=== PATIENT | female | born 1950 | race Caucasian/White ===

== ENCOUNTER 2018-09-04 06:21 | Inpatient (IN) ==
[2018-09-04 07:10] LABS: Basophils % 0.7 % (0.0-0.8); Eosinophils # 0.2 10*3/uL (0.0-0.87); Eosinophils % 2.8 % (0.00-10.9); Hematocrit 42.4 VOL% (35.7-47.0); Hemoglobin 14.2 GM/DL (12.0-16.0); Immature Granulocytes % 0.5 %; Immature Granulocytes Absolute 0.03 #; Lymphocytes # 1.2 10*3/uL (1.4-4.0); Lymphocytes % 18.7 % (21.3-54.2); Mean Corpuscular HGB Conc 33.5 GM/DL (32-36); Mean Corpuscular Hemoglobin 33 PG (27-34); Mean Corpuscular Volume 97.5 FL (87-102); Mean Platelet Volume 9.4 FL (9.6-12.0); Monocytes # 0.5 10*3/uL (0.11-0.8); Monocytes % 8.6 % (1.7-12.7); Neutrophils # 4.2 10*3/uL (1.4-7.4); Neutrophils % 68.7 % (38.7-73.9); Platelet Count 243 T/CUMM (130-400); Red Blood Count 4.35 MC/CUMM (3.8-5.5); Red Cell Distribution Width 12.7 % (9.3-17.3); White Blood Count 6.1 T/CUMM (4-12)
[2018-09-04 07:30] LABS: INR 0.9; PT Patient Result 9.3 SECS
[2018-09-04 07:57] LABS: Alanine Aminotransferase 44 U/L (13-56); Albumin 2.9 G/DL (3.4-5.0); Alkaline Phosphatase 48 U/L (45-117); Aspartate Amino Transferase 49 U/L (0-37); Bilirubin,Total < 0.39 MG/DL (0.2-1.0); Blood Urea Nitrogen 13 MG/DL (7-18); Calcium 7.5 MG/DL (8.5-10.1); Glucose 101 MG/DL (74-106); Potassium 3.3 MMOL/L (3.5-5.1); Sodium 143 MMOL/L (136-145); Total Protein 5.6 G/DL (6.4-8.3)
[2018-09-04] MEDS ORDERED: ENOXAPARIN 100 MG/ML SYRINGE SUBCUT STA (08:29)
[2018-09-04] MEDS ORDERED: NITROGLYCERIN 2% OINT 1 INCH/GM PACK TOP STA (08:29)
[2018-09-04] MEDS ORDERED: ASPIRIN 325 MG TABLET PO STA (08:29)
[2018-09-04] MEDS ORDERED: DOCUSATE SODIUM 100 MG CAPSULE PO PRN (09:07)
[2018-09-04] MEDS ORDERED: MAGNESIUM SULF RIDER 2 GM in PREMIX 1 EACH IV PRN (09:07)
[2018-09-04] MEDS ORDERED: ACETAMINOPHEN 325 MG TABLET PO PRN (09:07)
[2018-09-04] MEDS ORDERED: ZALEPLON 5 MG CAPSULE PO PRN (09:07)
[2018-09-04] MEDS ORDERED: MAGNESIUM SULF RIDER 4 GM in PREMIX 1 EACH IV PRN (09:07)
[2018-09-04] MEDS ORDERED: MORPHINE 4 MG/1 ML VIAL IV PRN (09:07)
[2018-09-04] MEDS ORDERED: TICAGRELOR 90 MG TABLET PO STA (09:11)
[2018-09-04] MEDS ORDERED: MAGNESIUM SULF RIDER 2 GM in PREMIX 1 EACH IV STA (09:11)
[2018-09-04] MEDS ORDERED: NITROGLYCERIN 2% OINT 1 INCH/GM PACK TOP PRN (09:15)
[2018-09-04] MEDS ORDERED: POTASSIUM CHLORIDE 20 MEQ TABLET PO STA (09:32)
[2018-09-04] MEDS: METOPROLOL TARTRATE 25 MG TABLET PO SCH ×2 (10:51→21:36)
[2018-09-04] MEDS ORDERED: NITROGLYCERIN DRIP 50 MG/250 ML BOTTLE IV PRN (14:12)
[2018-09-04] MEDS ORDERED: NITROGLYCERIN DRIP 50 MG/250 ML BOTTLE IV ONE (14:14)
[2018-09-04] MEDS ORDERED: ONDANSETRON 4 MG/2 ML VIAL ONE (15:01)
[2018-09-04] MEDS ORDERED: ONDANSETRON 4 MG/2 ML VIAL IV PRN (15:04)
[2018-09-04] MEDS ORDERED: amLODIPine 5 MG TABLET PO SCH (21:00)
[2018-09-04] MEDS: TICAGRELOR 90 MG TABLET PO SCH (21:36)
[2018-09-04] MEDS: ROSUVASTATIN 20 MG TABLET PO SCH (21:36)
[2018-09-04] MEDS: ENOXAPARIN 80 MG/0.8 ML SYRINGE SUBCUT SCH (21:37)
[2018-09-05 04:16] LABS: Basophils % 0.5 % (0.0-0.8); Eosinophils # 0.1 10*3/uL (0.0-0.87); Eosinophils % 1.8 % (0.00-10.9); Hematocrit 34.5 VOL% (35.7-47.0); Hemoglobin 11.3 GM/DL (12.0-16.0); Immature Granulocytes % 0.5 %; Immature Granulocytes Absolute 0.03 #; Lymphocytes % 15.8 % (21.3-54.2); Mean Corpuscular HGB Conc 32.8 GM/DL (32-36); Mean Corpuscular Hemoglobin 32 PG (27-34); Mean Corpuscular Volume 96.4 FL (87-102); Mean Platelet Volume 9.5 FL (9.6-12.0); Monocytes # 0.5 10*3/uL (0.11-0.8); Monocytes % 7.8 % (1.7-12.7); Neutrophils # 4.8 10*3/uL (1.4-7.4); Neutrophils % 73.6 % (38.7-73.9); Platelet Count 252 T/CUMM (130-400); Red Blood Count 3.58 MC/CUMM (3.8-5.5); Red Cell Distribution Width 12.6 % (9.3-17.3); White Blood Count 6.5 T/CUMM (4-12)
[2018-09-05 04:32] LABS: Calcium 8.1 MG/DL (8.5-10.1); Osmolality,Calculated 276.5 MOS/KG (273-304); Potassium 4.1 MMOL/L (3.5-5.1)
[2018-09-05 04:47] LABS: Risk Ratio 1.94; VLDL CHOLESTEROL 16.2 MG/DL
[2018-09-05] MEDS ORDERED: diphenhydrAMINE CAP 25 MG CAPSULE PO ONE (07:31)
[2018-09-05] MEDS ORDERED: DIAZEPAM 5 MG TABLET PO ONE (07:31)
[2018-09-05] MEDS ORDERED: SODIUM CHLORIDE 0.45% 1,000 ML IV SCH (08:00)
[2018-09-05] MEDS: PANTOPRAZOLE 40 MG TABLET PO SCH (08:20)
[2018-09-05] MEDS: ENOXAPARIN 80 MG/0.8 ML SYRINGE SUBCUT SCH (08:20)
[2018-09-05] MEDS: ASPIRIN EC 81 MG TABLET PO SCH (08:20)
[2018-09-05] MEDS: TICAGRELOR 90 MG TABLET PO SCH ×2 (08:20→20:59)
[2018-09-05] MEDS: LISINOPRIL/HCTZ 20-12.5 MG TABLET PO SCH (08:20)
[2018-09-05] MEDS: METOPROLOL TARTRATE 25 MG TABLET PO SCH ×2 (08:20→20:59)
[2018-09-05] MEDS: ANASTROZOLE 1 MG TABLET PO SCH (08:20)
[2018-09-05] MEDS ORDERED: LIDOCAINE 1% 20 ML VIAL ONE (11:49)
[2018-09-05] MEDS ORDERED: HEPARIN/NACL 0.9% 2 UNITS/ML 1,000 ML IV ONE (11:49)
[2018-09-05] MEDS ORDERED: fentaNYL 100 MCG/2 ML VIAL ONE (11:51)
[2018-09-05] MEDS ORDERED: MIDAZOLAM 2 MG/2 ML VIAL ONE (11:51)
[2018-09-05] MEDS ORDERED: ONDANSETRON 4 MG/2 ML VIAL ONE (11:53)
[2018-09-05] MEDS ORDERED: VERAPAMIL 5 MG/2 ML VIAL ONE (11:59)
[2018-09-05] MEDS ORDERED: NITROGLYCERIN DRIP 50 MG/250 ML BOTTLE IV ONE (11:59)
[2018-09-05] MEDS ORDERED: ENOXAPARIN 60 MG/0.6 ML SYRINGE ONE (12:11)
[2018-09-05] MEDS: ROSUVASTATIN 20 MG TABLET PO SCH (20:59)
[2018-09-06 02:44] LABS: Basophils % 0.4 % (0.0-0.8); Eosinophils # 0.1 10*3/uL (0.0-0.87); Eosinophils % 1.3 % (0.00-10.9); Hematocrit 36.4 VOL% (35.7-47.0); Hemoglobin 12.2 GM/DL (12.0-16.0); Immature Granulocytes % 0.3 %; Immature Granulocytes Absolute 0.02 #; Lymphocytes # 1.1 10*3/uL (1.4-4.0); Lymphocytes % 15.1 % (21.3-54.2); Mean Corpuscular HGB Conc 33.5 GM/DL (32-36); Mean Corpuscular Hemoglobin 33 PG (27-34); Mean Corpuscular Volume 97.6 FL (87-102); Mean Platelet Volume 9.3 FL (9.6-12.0); Monocytes # 0.7 10*3/uL (0.11-0.8); Monocytes % 9.9 % (1.7-12.7); Neutrophils # 5.1 10*3/uL (1.4-7.4); Platelet Count 249 T/CUMM (130-400); Red Blood Count 3.73 MC/CUMM (3.8-5.5); White Blood Count 6.9 T/CUMM (4-12)
[2018-09-06 03:00] LABS: Calcium 8.4 MG/DL (8.5-10.1); Osmolality,Calculated 274.7 MOS/KG (273-304); Potassium 3.8 MMOL/L (3.5-5.1)
[2018-09-06] MEDS: ASPIRIN EC 81 MG TABLET PO SCH (08:12)
[2018-09-06] MEDS: ANASTROZOLE 1 MG TABLET PO SCH (08:12)
[2018-09-06] MEDS: TICAGRELOR 90 MG TABLET PO SCH ×2 (08:12→20:50)
[2018-09-06] MEDS: METOPROLOL TARTRATE 25 MG TABLET PO SCH ×2 (08:13→20:50)
[2018-09-06] MEDS: LISINOPRIL/HCTZ 20-12.5 MG TABLET PO SCH (08:13)
[2018-09-06] MEDS: PANTOPRAZOLE 40 MG TABLET PO SCH (08:13)
[2018-09-06] MEDS ORDERED: MAGNESIUM HYDROXIDE SUSP 30 ML UDCUP PO PRN (15:02)
[2018-09-06] MEDS ORDERED: diphenhydrAMINE CAP 25 MG CAPSULE PO PRN (15:02)
[2018-09-06] MEDS ORDERED: SODIUM PHOSPHATE ENEMA 133 ML BOTTLE RECTAL ONE (20:21)
[2018-09-06] MEDS: ROSUVASTATIN 20 MG TABLET PO SCH (20:50)
[2018-09-07 04:10] LABS: Basophils % 0.4 % (0.0-0.8); Eosinophils # 0.1 10*3/uL (0.0-0.87); Eosinophils % 0.9 % (0.00-10.9); Immature Granulocytes % 0.5 %; Immature Granulocytes Absolute 0.04 #; Lymphocytes # 1.1 10*3/uL (1.4-4.0); Lymphocytes % 14.9 % (21.3-54.2); Mean Corpuscular HGB Conc 33.3 GM/DL (32-36); Mean Corpuscular Hemoglobin 32 PG (27-34); Mean Corpuscular Volume 95.2 FL (87-102); Mean Platelet Volume 9.4 FL (9.6-12.0); Monocytes # 0.6 10*3/uL (0.11-0.8); Monocytes % 8.5 % (1.7-12.7); Neutrophils # 5.6 10*3/uL (1.4-7.4); Neutrophils % 74.8 % (38.7-73.9); Platelet Count 253 T/CUMM (130-400); Red Blood Count 3.78 MC/CUMM (3.8-5.5); Red Cell Distribution Width 12.8 % (9.3-17.3); White Blood Count 7.5 T/CUMM (4-12)
[2018-09-07 04:41] LABS: Calcium 8.7 MG/DL (8.5-10.1); Osmolality,Calculated 277.5 MOS/KG (273-304); Potassium 3.4 MMOL/L (3.5-5.1)
[2018-09-07 04:42] LABS: Osmolality,Calculated 279.4 MOS/KG (273-304); Potassium 3.4 MMOL/L (3.5-5.1)
[2018-09-07] MEDS: ASPIRIN EC 81 MG TABLET PO SCH ×2 (07:57→08:40)
[2018-09-07] MEDS: TICAGRELOR 90 MG TABLET PO SCH ×2 (07:57→08:40)
[2018-09-07] MEDS: ANASTROZOLE 1 MG TABLET PO SCH ×2 (07:57→08:40)
[2018-09-07] MEDS: LISINOPRIL/HCTZ 20-12.5 MG TABLET PO SCH ×2 (07:57→08:41)
[2018-09-07] MEDS: METOPROLOL TARTRATE 25 MG TABLET PO SCH ×2 (07:57→08:41)
[2018-09-07] MEDS: PANTOPRAZOLE 40 MG TABLET PO SCH ×2 (07:57→08:41)
[2018-09-07 08:00] VITALS: BP 124/60
== END 2018-09-07 10:02 | disposition home or self-care (01) | DRG 247 ==
LOC: N.ED 06:21 → N.EDINP 09:07 → N.TELEN 10:01 → N.CC 12:48 → N.ICU 09-05 16:15 → N.TELEN 09-06 08:57
PROVIDERS: ADMIT Internal Medicine Clinical Cardiac Electrophysiology; ATTEND Internal Medicine Clinical Cardiac Electrophysiology
PROC: CLCCHCL (ICD-10-PCS; 2018-09-05 12:15)

== ENCOUNTER 2019-02-06 13:28 | Inpatient (IN) ==
[2019-02-06] MEDS ORDERED: SODIUM CHLORIDE 0.9% 1,000 ML IV STA ×2 (14:07→15:27)
[2019-02-06] MEDS ORDERED: VANCOMYCIN INJ 1,000 MG in SODIUM CHLORIDE 0.9% 250 ML IV STA (14:07)
[2019-02-06] MEDS ORDERED: PIPERACILLIN/TAZOBACTAM 3,375 MG in SODIUM CHLORIDE 0.9% 100 ML IV STA (14:07)
[2019-02-06 14:26] LABS: Basophils % 3.2 % (0.0-0.8); Eosinophils % 1.1 % (0.00-10.9); Hematocrit 32.5 VOL% (35.7-47.0); Hemoglobin 10.9 GM/DL (12.0-16.0); Lymphocytes # 0.4 10*3/uL (1.4-4.0); Lymphocytes % 41.9 % (21.3-54.2); Mean Corpuscular HGB Conc 33.5 GM/DL (32-36); Mean Corpuscular Hemoglobin 34 PG (27-34); Mean Corpuscular Volume 101.6 FL (87-102); Mean Platelet Volume 10.3 FL (9.6-12.0); Monocytes # 0.3 10*3/uL (0.11-0.8); Monocytes % 31.2 % (1.7-12.7); Neutrophils # 0.2 10*3/uL (1.4-7.4); Neutrophils % 22.6 % (38.7-73.9); Platelet Count 160 T/CUMM (130-400); Red Cell Distribution Width 17.3 % (9.3-17.3)
[2019-02-06] MEDS ORDERED: VANCOMYCIN 1,000 MG VIAL ONE (14:31)
[2019-02-06 14:32] LABS: White Blood Count 0.9 T/CUMM (4-12)
[2019-02-06 14:33] LABS: INR 0.9; PT Patient Result 10.3 SECS
[2019-02-06 14:49] LABS: Alanine Aminotransferase 22 U/L (13-56); Albumin 2.8 G/DL (3.4-5.0); Alkaline Phosphatase 170 U/L (45-117); Amylase 25 U/L (25-115); Aspartate Amino Transferase 49 U/L (0-37); Blood Urea Nitrogen 14 MG/DL (7-18); Calcium 9.8 MG/DL (8.5-10.1); Glucose 132 MG/DL (74-106); Osmolality,Calculated 264.7 MOS/KG (273-304); Potassium 3.5 MMOL/L (3.5-5.1); Sodium 131 MMOL/L (136-145); Total Protein 6.7 G/DL (6.4-8.3); Troponin I < 0.015 NG/ML (0.00-0.045)
[2019-02-06 15:12] LABS: Apearance,Urine CLEAR (Clear); Bilirubin,Urine Negative (Negative); Blood, Urine Negative (Negative); Glucose,Urine (UA) Negative (Negative); Ketones,Urine Negative (Negative); Nitrite,Urine Negative (Negative); Protein,Urine 100 MG/DL; RBC,Urine 1 /HPF (0-4); Urine Color Yellow (Yellow); Urine Specific Gravity 1.012 (1.001-1.035); Urine Urobilinogen < 2.0 EU/DL (0.2-1.0); WBC,Urine 1 /HPF (0-6)
[2019-02-06] MEDS ORDERED: ALBUTEROL 2.5 MG/3 ML NEB RESP TX PRN (15:20)
[2019-02-06 15:26] LABS: Eosinophils 2 % (0-10); Lymphocytes 56 % (20-55); Segmented Neutrophils 22 % (50-85); Total Cells Counted 100
[2019-02-06] MEDS ORDERED: ONDANSETRON 4 MG/2 ML VIAL IV PRN (15:26)
[2019-02-06] MEDS ORDERED: PROMETHAZINE 25 MG/1 ML VIAL IM PRN (15:26)
[2019-02-06 15:27] LABS: Elliptocytes Few; Hypochromasia 1+; Microcytosis 1+
[2019-02-06 15:28] LABS: Anisocytosis 1+; Platelet Estimate Adequate
[2019-02-06] MEDS ORDERED: CEFEPIME 1,000 MG in SODIUM CHLORIDE 0.9% 100 ML IV SCH (16:00)
[2019-02-06 16:02] LABS: Thyroid Stimulating Hormone 1.08 uIU/ml (0.358-3.74)
[2019-02-06] MEDS ORDERED: FLUCONAZOLE 200 MG TABLET PO ONE (16:19)
[2019-02-06] MEDS ORDERED: ENOXAPARIN 30 MG/0.3 ML SYRINGE SUBCUT SCH (16:30)
[2019-02-06] MEDS ORDERED: VANCOMYCIN INJ 1,000 MG in SODIUM CHLORIDE 0.9% 250 ML IV SCH (16:30)
[2019-02-06] MEDS ORDERED: ONDANSETRON ODT 4 MG TABLET PO PRN (16:49)
[2019-02-06] MEDS: SODIUM CHLORIDE 0.9% 1,000 ML IV SCH (17:00)
[2019-02-06 17:53] LABS: Folate 9.9 NG/ML (5.4-24.0); Vitamin B12 > 2000 PG/ML (211-911)
[2019-02-06] MEDS: PANTOPRAZOLE 40 MG VIAL IV SCH (18:03)
[2019-02-06] MEDS: FILGRASTIM-SNDZ 300 MCG/0.5 ML SYRINGE SUBCUT SCH (19:01)
[2019-02-06] MEDS: ALBUTEROL/IPRATROPIUM 3 ML NEB RESP TX SCH (19:48)
[2019-02-06] MEDS: ROSUVASTATIN 20 MG TABLET PO SCH (22:12)
[2019-02-06] MEDS: TICAGRELOR 90 MG TABLET PO SCH (22:12)
[2019-02-07] MEDS: ALBUTEROL/IPRATROPIUM 3 ML NEB RESP TX SCH ×4 (01:35→19:51)
[2019-02-07] MEDS: PIPERACILLIN/TAZOBACTAM 3,375 MG in SODIUM CHLORIDE 0.9% 100 ML IV SCH ×3 (01:46→17:08)
[2019-02-07] MEDS: SODIUM CHLORIDE 0.9% 1,000 ML IV SCH ×4 (03:44→22:16)
[2019-02-07 04:24] LABS: Basophils % 1.6 % (0.0-0.8); Eosinophils % 0.8 % (0.00-10.9); Hematocrit 26.5 VOL% (35.7-47.0); Hemoglobin 9.2 GM/DL (12.0-16.0); Immature Granulocytes % 8.8 %; Immature Granulocytes Absolute 0.11 #; Lymphocytes # 0.4 10*3/uL (1.4-4.0); Lymphocytes % 34.4 % (21.3-54.2); Mean Corpuscular HGB Conc 34.7 GM/DL (32-36); Mean Corpuscular Hemoglobin 35 PG (27-34); Mean Corpuscular Volume 101.5 FL (87-102); Mean Platelet Volume 10.3 FL (9.6-12.0); Monocytes # 0.5 10*3/uL (0.11-0.8); Monocytes % 42.4 % (1.7-12.7); Neutrophils # 0.2 10*3/uL (1.4-7.4); Platelet Count 125 T/CUMM (130-400); Red Blood Count 2.61 MC/CUMM (3.8-5.5); Red Cell Distribution Width 17.5 % (9.3-17.3); White Blood Count 1.3 T/CUMM (4-12)
[2019-02-07 04:37] LABS: Bilirubin,Total 0.7 MG/DL (0.2-1.0); Potassium 2.8 MMOL/L (3.5-5.1); Risk Ratio 1.59; VLDL CHOLESTEROL 10.6 MG/DL
[2019-02-07 05:17] LABS: Band Neutrophils 9 % (0-10); Hypochromasia 2+; Lymphocytes 31 % (20-55); Ovalocytes Few; Platelet Estimate Decreased; Segmented Neutrophils 19 % (50-85); Total Cells Counted 109
[2019-02-07] MEDS ORDERED: MAGNESIUM SULF RIDER 4 GM in PREMIX 1 EACH IV PRN (05:37)
[2019-02-07] MEDS ORDERED: MAGNESIUM SULF RIDER 2 GM in PREMIX 1 EACH IV PRN (05:37)
[2019-02-07] MEDS: POTASSIUM CHLORIDE RIDER 10 MEQ in PREMIX 1 EACH IV PRN ×3 (06:24→11:03)
[2019-02-07] MEDS: TICAGRELOR 90 MG TABLET PO SCH ×2 (08:08→21:27)
[2019-02-07] MEDS: ASPIRIN EC 81 MG TABLET PO SCH (08:08)
[2019-02-07] MEDS: LORATADINE 10 MG TABLET PO SCH (08:08)
[2019-02-07] MEDS ORDERED: VIACTIV PO SCH (09:00)
[2019-02-07] MEDS ORDERED: MYLANTA/LIDO VISC 2:1 300 ML BOTTLE SWISH/SWAL PRN (09:14)
[2019-02-07] MEDS: ENOXAPARIN 40 MG/0.4 ML SYRINGE SUBCUT SCH (09:33)
[2019-02-07] MEDS: FILGRASTIM-SNDZ 300 MCG/0.5 ML SYRINGE SUBCUT SCH (09:33)
[2019-02-07] MEDS: PANTOPRAZOLE 40 MG VIAL IV SCH (14:33)
[2019-02-07] MEDS: VANCOMYCIN INJ 1,000 MG in SODIUM CHLORIDE 0.9% 250 ML IV SCH (14:33)
[2019-02-07] MEDS: ACETAMINOPHEN 325 MG TABLET PO PRN (18:20)
[2019-02-07] MEDS: ROSUVASTATIN 20 MG TABLET PO SCH (21:27)
[2019-02-08] MEDS: ALBUTEROL/IPRATROPIUM 3 ML NEB RESP TX SCH ×4 (00:18→20:20)
[2019-02-08] MEDS: PIPERACILLIN/TAZOBACTAM 3,375 MG in SODIUM CHLORIDE 0.9% 100 ML IV SCH ×4 (00:35→23:46)
[2019-02-08 04:09] LABS: Basophils # 0.1 10*3/uL (0.0-0.2); Basophils % 1.2 % (0.0-0.8); Eosinophils % 0.2 % (0.00-10.9); Hematocrit 25.7 VOL% (35.7-47.0); Hemoglobin 8.7 GM/DL (12.0-16.0); Immature Granulocytes % 9.1 %; Immature Granulocytes Absolute 0.45 #; Lymphocytes # 0.7 10*3/uL (1.4-4.0); Lymphocytes % 13.9 % (21.3-54.2); Mean Corpuscular HGB Conc 33.9 GM/DL (32-36); Mean Corpuscular Hemoglobin 34 PG (27-34); Mean Corpuscular Volume 101.6 FL (87-102); Mean Platelet Volume 10.1 FL (9.6-12.0); Monocytes # 1.4 10*3/uL (0.11-0.8); Monocytes % 27.8 % (1.7-12.7); NRBC # 0.03 10*3/uL; Neutrophils # 2.4 10*3/uL (1.4-7.4); Neutrophils % 47.8 % (38.7-73.9); Platelet Count 163 T/CUMM (130-400); Red Blood Count 2.53 MC/CUMM (3.8-5.5); Red Cell Distribution Width 17.6 % (9.3-17.3)
[2019-02-08 04:30] LABS: Albumin 1.9 G/DL (3.4-5.0); Bilirubin,Total 0.7 MG/DL (0.2-1.0); Calcium 7.7 MG/DL (8.5-10.1); Osmolality,Calculated 273.7 MOS/KG (273-304); Potassium 2.7 MMOL/L (3.5-5.1)
[2019-02-08 05:48] LABS: Band Neutrophils 3 % (0-10); Lymphocytes 46 % (20-55); Segmented Neutrophils 33 % (50-85); Total Cells Counted 100
[2019-02-08 05:49] LABS: Platelet Estimate Decreased; Polychromasia Few
[2019-02-08] MEDS: POTASSIUM CHLORIDE RIDER 10 MEQ in PREMIX 1 EACH IV PRN ×2 (06:47→10:51)
[2019-02-08] MEDS ORDERED: POTASSIUM CHLORIDE 20 MEQ TABLET PO ONE (08:25)
[2019-02-08] MEDS ORDERED: PROCHLORPERAZINE 5 MG TABLET PO PRN (08:26)
[2019-02-08] MEDS: ACETAMINOPHEN 325 MG TABLET PO PRN ×2 (08:38→23:48)
[2019-02-08] MEDS: LORATADINE 10 MG TABLET PO SCH (08:39)
[2019-02-08] MEDS: ASPIRIN EC 81 MG TABLET PO SCH (08:39)
[2019-02-08] MEDS: TICAGRELOR 90 MG TABLET PO SCH ×2 (08:39→21:24)
[2019-02-08] MEDS: FILGRASTIM-SNDZ 300 MCG/0.5 ML SYRINGE SUBCUT SCH (08:46)
[2019-02-08] MEDS: METOPROLOL TARTRATE 25 MG TABLET PO SCH ×2 (08:46→21:24)
[2019-02-08] MEDS: DOCUSATE SODIUM 100 MG CAPSULE PO SCH ×2 (08:46→21:24)
[2019-02-08] MEDS: ENOXAPARIN 40 MG/0.4 ML SYRINGE SUBCUT SCH (08:46)
[2019-02-08] MEDS: SENNA 8.6 MG TABLET PO SCH ×2 (09:04→21:24)
[2019-02-08] MEDS ORDERED: POTASSIUM CHLORIDE 20 MEQ TABLET PO PRN (14:18)
[2019-02-08] MEDS: VANCOMYCIN INJ 1,000 MG in SODIUM CHLORIDE 0.9% 250 ML IV SCH (15:34)
[2019-02-08] MEDS: SODIUM CHLORIDE 0.9% 1,000 ML IV SCH ×2 (15:36→16:57)
[2019-02-08] MEDS: PANTOPRAZOLE 40 MG VIAL IV SCH (17:01)
[2019-02-08] MEDS: ROSUVASTATIN 20 MG TABLET PO SCH (21:23)
[2019-02-09] MEDS: SODIUM CHLORIDE 0.9% 1,000 ML IV SCH (03:54)
[2019-02-09 04:51] LABS: Basophils % 0.2 % (0.0-0.8); Hematocrit 24.8 VOL% (35.7-47.0); Hemoglobin 8.5 GM/DL (12.0-16.0); Immature Granulocytes % 18.6 %; Immature Granulocytes Absolute 4.08 #; Lymphocytes % 4.6 % (21.3-54.2); Mean Corpuscular HGB Conc 34.3 GM/DL (32-36); Mean Corpuscular Hemoglobin 35 PG (27-34); Mean Corpuscular Volume 102.5 FL (87-102); Mean Platelet Volume 10.2 FL (9.6-12.0); Monocytes % 9.2 % (1.7-12.7); NRBC # 0.15 10*3/uL; Neutrophils # 14.8 10*3/uL (1.4-7.4); Neutrophils % 67.4 % (38.7-73.9); Platelet Count 195 T/CUMM (130-400); Red Blood Count 2.42 MC/CUMM (3.8-5.5); Red Cell Distribution Width 17.9 % (9.3-17.3)
[2019-02-09 05:10] LABS: Albumin 1.8 G/DL (3.4-5.0); Bilirubin,Total 0.6 MG/DL (0.2-1.0); Calcium 7.8 MG/DL (8.5-10.1); Osmolality,Calculated 274.5 MOS/KG (273-304); Potassium 3.5 MMOL/L (3.5-5.1); Total Protein 5.1 G/DL (6.4-8.3)
[2019-02-09 06:30] LABS: Band Neutrophils 2 % (0-10); Lymphocytes 13 % (20-55); Metamyelocytes 5 %; Myelocytes 3 %; Nucleated Red Blood Cells 1 (0-5); Segmented Neutrophils 66 % (50-85); Total Cells Counted 100
[2019-02-09 06:32] LABS: Hypochromasia 1+; Ovalocytes 1+; Platelet Estimate Normal; Polychromasia Few
[2019-02-09] MEDS: ALBUTEROL/IPRATROPIUM 3 ML NEB RESP TX SCH ×3 (07:19→13:06)
[2019-02-09] MEDS: FILGRASTIM-SNDZ 300 MCG/0.5 ML SYRINGE SUBCUT SCH (09:21)
[2019-02-09] MEDS: SENNA 8.6 MG TABLET PO SCH (09:26)
[2019-02-09] MEDS: DOCUSATE SODIUM 100 MG CAPSULE PO SCH (09:26)
[2019-02-09] MEDS: TICAGRELOR 90 MG TABLET PO SCH (09:27)
[2019-02-09] MEDS: ASPIRIN EC 81 MG TABLET PO SCH (09:27)
[2019-02-09] MEDS: LORATADINE 10 MG TABLET PO SCH (09:27)
[2019-02-09] MEDS: ENOXAPARIN 40 MG/0.4 ML SYRINGE SUBCUT SCH (09:27)
[2019-02-09] MEDS: PIPERACILLIN/TAZOBACTAM 3,375 MG in SODIUM CHLORIDE 0.9% 100 ML IV SCH ×2 (09:27→16:40)
[2019-02-09] MEDS: METOPROLOL TARTRATE 25 MG TABLET PO SCH (09:27)
[2019-02-09 15:33] VITALS: BP 123/66
[2019-02-09] MEDS: PANTOPRAZOLE 40 MG VIAL IV SCH (16:40)
== END 2019-02-09 16:49 | disposition home or self-care (01) | DRG 808 ==
LOC: N.ED 13:28 → SUATTDRO 15:21 → N.EDINP 15:21 → N.ICU 15:52 → N.4E 02-08 14:42
PROVIDERS: ADMIT Internal Medicine; ATTEND Internal Medicine

== ENCOUNTER 2019-02-25 10:36 | Inpatient (IN) ==
[2019-02-25] MEDS ORDERED: ONDANSETRON 4 MG/2 ML VIAL IV STA (11:05)
[2019-02-25] MEDS ORDERED: SODIUM CHLORIDE 0.9% 1,000 ML IV STA (11:05)
[2019-02-25 11:13] LABS: Basophils # 0.1 10*3/uL (0.0-0.2); Basophils % 0.8 % (0.0-0.8); Eosinophils % 0.2 % (0.00-10.9); Hematocrit 22.4 VOL% (35.7-47.0); Hemoglobin 6.9 GM/DL (12.0-16.0); Immature Granulocytes Absolute 2.08 #; Lymphocytes # 0.5 10*3/uL (1.4-4.0); Lymphocytes % 4.1 % (21.3-54.2); Mean Corpuscular HGB Conc 30.8 GM/DL (32-36); Mean Corpuscular Volume 110.3 FL (87-102); Mean Platelet Volume 9.8 FL (9.6-12.0); Monocytes % 1.9 % (1.7-12.7); Platelet Count 301 T/CUMM (130-400); Red Blood Count 2.03 MC/CUMM (3.8-5.5); Red Cell Distribution Width 18.3 % (9.3-17.3)
[2019-02-25 11:21] LABS: PT Patient Result 10.7 SECS; Partial Thromboplastin Time 24.2 SECS (0-40)
[2019-02-25 11:33] LABS: Alanine Aminotransferase 21 U/L (13-56); Albumin 2.5 G/DL (3.4-5.0); Alkaline Phosphatase 142 U/L (45-117); Aspartate Amino Transferase 38 U/L (0-37); Band Neutrophils 1 % (0-10); Bilirubin,Total < 0.39 MG/DL (0.2-1.0); Blood Urea Nitrogen 12 MG/DL (7-18); Calcium 8.3 MG/DL (8.5-10.1); Glucose 168 MG/DL (74-106); Lymphocytes 6 % (20-55); Macrocytosis 1+; Metamyelocytes 2 %; Myelocytes 3 %; Osmolality,Calculated 282.4 MOS/KG (273-304); Ovalocytes Slight; Segmented Neutrophils 84 % (50-85); Tear Drop Cells Slight; Total Cells Counted 100; Total Protein 5.2 G/DL (6.4-8.3)
[2019-02-25 11:34] LABS: Hypochromasia 1+; Platelet Estimate Normal
[2019-02-25 12:18] LABS: Apearance,Urine CLEAR (Clear); Bacteria,Urine Occasional /HPF (Few); Bilirubin,Urine Negative (Negative); Blood, Urine Negative (Negative); Glucose,Urine (UA) Negative (Negative); Ketones,Urine Negative (Negative); Mucus,Urine Occasional /LPF (Occasional); Nitrite,Urine Negative (Negative); Protein,Urine Negative; RBC,Urine <1 /HPF (0-4); Squamous Epithelial Cell,Urine Occasional /HPF (0-10); Urine Color Yellow (Yellow); Urine Specific Gravity 1.014 (1.001-1.035); Urine Urobilinogen < 2.0 EU/DL (0.2-1.0); WBC,Urine 3 /HPF (0-6)
[2019-02-25] MEDS ORDERED: ACETAMINOPHEN 325 MG TABLET PO PRN (14:34)
[2019-02-25] MEDS ORDERED: ONDANSETRON 4 MG/2 ML VIAL IV PRN (14:34)
[2019-02-25] MEDS ORDERED: SODIUM CHLORIDE 0.9% 1,000 ML IV PRN (14:42)
[2019-02-25] MEDS ORDERED: PROCHLORPERAZINE 5 MG TABLET PO PRN (14:45)
[2019-02-25] MEDS: SODIUM CHLORIDE 0.9% 1,000 ML IV SCH (20:35)
[2019-02-25] MEDS ORDERED: TICAGRELOR 90 MG TABLET PO SCH (21:00)
[2019-02-25] MEDS: ROSUVASTATIN 20 MG TABLET PO SCH (21:43)
[2019-02-25] MEDS: LORATADINE 10 MG TABLET PO SCH (21:44)
[2019-02-25] MEDS: PANTOPRAZOLE 40 MG VIAL IV SCH (21:44)
[2019-02-26] MEDS: SODIUM CHLORIDE 0.9% 1,000 ML IV SCH ×3 (03:15→23:13)
[2019-02-26 04:32] LABS: Basophils # 0.1 10*3/uL (0.0-0.2); Basophils % 1.6 % (0.0-0.8); Eosinophils % 0.3 % (0.00-10.9); Hematocrit 26.3 VOL% (35.7-47.0); Hemoglobin 8.4 GM/DL (12.0-16.0); Immature Granulocytes % 29.3 %; Immature Granulocytes Absolute 2.52 #; Lymphocytes # 0.6 10*3/uL (1.4-4.0); Lymphocytes % 6.7 % (21.3-54.2); Mean Corpuscular HGB Conc 31.9 GM/DL (32-36); Mean Corpuscular Volume 100.4 FL (87-102); Monocytes % 2.3 % (1.7-12.7); Neutrophils % 59.8 % (38.7-73.9); Platelet Count 188 T/CUMM (130-400); Red Blood Count 2.62 MC/CUMM (3.8-5.5); Red Cell Distribution Width 19.4 % (9.3-17.3); White Blood Count 8.6 T/CUMM (4-12)
[2019-02-26 05:08] LABS: Calcium 7.6 MG/DL (8.5-10.1); Osmolality,Calculated 280.1 MOS/KG (273-304); Thyroid Stimulating Hormone 1.98 uIU/ml (0.358-3.74)
[2019-02-26 05:11] LABS: Band Neutrophils 2 % (0-10); Eosinophils 1 % (0-10); Lymphocytes 8 % (20-55); Metamyelocytes 1 %; Myelocytes 3 %; Segmented Neutrophils 83 % (50-85); Total Cells Counted 100
[2019-02-26 05:12] LABS: Anisocytosis 1+; Microcytosis Slight
[2019-02-26 05:13] LABS: Ovalocytes Slight; Platelet Estimate Normal; Stomatocytes Slight
[2019-02-26] MEDS: POLYETHYLENE GLYCOL POWDER 17 GM PACK PO SCH ×3 (13:07→21:50)
[2019-02-26] MEDS: PANTOPRAZOLE 40 MG VIAL IV SCH ×2 (13:07→21:50)
[2019-02-26] MEDS: ASPIRIN EC 81 MG TABLET PO SCH (13:08)
[2019-02-26 21:31] LABS: Hematocrit 28.5 VOL% (35.7-47.0); Hemoglobin 9.2 GM/DL (12.0-16.0)
[2019-02-26] MEDS: LORATADINE 10 MG TABLET PO SCH (21:50)
[2019-02-26] MEDS: ROSUVASTATIN 20 MG TABLET PO SCH (21:50)
[2019-02-27 04:20] LABS: Basophils # 0.2 10*3/uL (0.0-0.2); Basophils % 2.2 % (0.0-0.8); Eosinophils # 0.2 10*3/uL (0.0-0.87); Eosinophils % 2.3 % (0.00-10.9); Hematocrit 26.1 VOL% (35.7-47.0); Hemoglobin 8.4 GM/DL (12.0-16.0); Immature Granulocytes % 2.2 %; Immature Granulocytes Absolute 0.16 #; Lymphocytes # 0.8 10*3/uL (1.4-4.0); Lymphocytes % 11.6 % (21.3-54.2); Mean Corpuscular HGB Conc 32.2 GM/DL (32-36); Mean Corpuscular Volume 100.8 FL (87-102); Mean Platelet Volume 10.3 FL (9.6-12.0); Monocytes % 4.6 % (1.7-12.7); Neutrophils % 77.1 % (38.7-73.9); Platelet Count 181 T/CUMM (130-400); Red Blood Count 2.59 MC/CUMM (3.8-5.5); Red Cell Distribution Width 19.8 % (9.3-17.3); White Blood Count 7.2 T/CUMM (4-12)
[2019-02-27 04:41] LABS: Calcium 7.3 MG/DL (8.5-10.1); Osmolality,Calculated 283.7 MOS/KG (273-304)
[2019-02-27 04:47] LABS: Anisocytosis 1+; Band Neutrophils 2 % (0-10); Lymphocytes 13 % (20-55); Myelocytes 1 %; Segmented Neutrophils 78 % (50-85); Total Cells Counted 100
[2019-02-27 04:48] LABS: Hypochromasia Slight; Microcytosis Slight; Platelet Estimate Adequate
[2019-02-27] MEDS: ASPIRIN EC 81 MG TABLET PO SCH (08:50)
[2019-02-27] MEDS: POTASSIUM CHLORIDE 20 MEQ TABLET PO PRN ×2 (08:50→14:34)
[2019-02-27] MEDS: POLYETHYLENE GLYCOL POWDER 17 GM PACK PO SCH ×3 (08:50→21:00)
[2019-02-27] MEDS: PANTOPRAZOLE 40 MG VIAL IV SCH ×2 (08:51→21:00)
[2019-02-27 10:18] LABS: Hematocrit 27.9 VOL% (35.7-47.0); Hemoglobin 8.9 GM/DL (12.0-16.0)
[2019-02-27] MEDS: SODIUM CHLORIDE 0.9% 1,000 ML IV SCH ×2 (14:36→21:05)
[2019-02-27 20:51] LABS: Hematocrit 26.6 VOL% (35.7-47.0); Hemoglobin 8.6 GM/DL (12.0-16.0)
[2019-02-27] MEDS: ROSUVASTATIN 20 MG TABLET PO SCH (20:59)
[2019-02-27] MEDS: LORATADINE 10 MG TABLET PO SCH (21:00)
[2019-02-28] MEDS: SODIUM CHLORIDE 0.9% 1,000 ML IV SCH ×2 (05:45→14:25)
[2019-02-28 06:06] LABS: Basophils # 0.2 10*3/uL (0.0-0.2); Basophils % 1.9 % (0.0-0.8); Eosinophils # 0.3 10*3/uL (0.0-0.87); Eosinophils % 3.2 % (0.00-10.9); Hematocrit 26.9 VOL% (35.7-47.0); Hemoglobin 8.4 GM/DL (12.0-16.0); Immature Granulocytes % 5.8 %; Lymphocytes % 11.9 % (21.3-54.2); Mean Corpuscular HGB Conc 31.2 GM/DL (32-36); Mean Corpuscular Volume 101.9 FL (87-102); Mean Platelet Volume 10.3 FL (9.6-12.0); Monocytes % 11.1 % (1.7-12.7); NRBC # 0.09 10*3/uL; Neutrophils % 66.1 % (38.7-73.9); Platelet Count 178 T/CUMM (130-400); Red Blood Count 2.64 MC/CUMM (3.8-5.5); White Blood Count 8.6 T/CUMM (4-12)
[2019-02-28 06:16] LABS: Calcium 7.7 MG/DL (8.5-10.1)
[2019-02-28 06:56] LABS: Band Neutrophils 4 % (0-10); Eosinophils 2 % (0-10); Lymphocytes 14 % (20-55); Segmented Neutrophils 74 % (50-85); Total Cells Counted 100
[2019-02-28 06:57] LABS: Anisocytosis 1+; Microcytosis Slight
[2019-02-28 06:58] LABS: Ovalocytes Slight; Platelet Estimate Normal
[2019-02-28] MEDS: ASPIRIN EC 81 MG TABLET PO SCH (10:50)
[2019-02-28] MEDS: PANTOPRAZOLE 40 MG VIAL IV SCH (10:51)
[2019-02-28] MEDS: POLYETHYLENE GLYCOL POWDER 17 GM PACK PO SCH (11:00)
[2019-02-28 11:33] VITALS: BP 137/71
[2019-03-01] MEDS ORDERED: POLYETHYLENE GLYCOL POWDER 17 GM PACK PO SCH (09:00)
== END 2019-02-28 13:30 | disposition home or self-care (01) ==
LOC: N.ED 10:36 → N.EDINP 13:42 → N.4E 15:02
PROVIDERS: ADMIT Internal Medicine; ATTEND Internal Medicine

== ENCOUNTER 2020-03-02 11:01 | Inpatient (IN) ==
[2020-03-02 12:08] LABS: Basophils % 0.2 % (0.0-0.8); Hematocrit 30.6 VOL% (35.7-47.0); Hemoglobin 9.5 GM/DL (12.0-16.0); Immature Granulocytes % 26.2 %; Immature Granulocytes Absolute 4.46 #; Lymphocytes # 0.2 10*3/uL (1.4-4.0); Mean Corpuscular Volume 97.1 FL (87-102); Mean Platelet Volume 9.6 FL (9.6-12.0); Monocytes % 0.1 % (1.7-12.7); Neutrophils % 72.5 % (38.7-73.9); Platelet Count 44 T/CUMM (130-400); Red Blood Count 3.15 MC/CUMM (3.8-5.5); Red Cell Distribution Width 19.5 % (9.3-17.3); White Blood Count 17.1 T/CUMM (4-12)
[2020-03-02] MEDS ORDERED: FUROSEMIDE 40 MG/4 ML VIAL IV STA (12:15)
[2020-03-02 12:36] LABS: Albumin 2.1 G/DL (3.4-5.0); Band Neutrophils 20 % (0-10); Bilirubin,Total 0.8 MG/DL (0.2-1.0); Calcium 7.7 MG/DL (8.5-10.1); Metamyelocytes 2 %; Myelocytes 1 %; Osmolality,Calculated 269.4 MOS/KG (273-304); Segmented Neutrophils 73 % (50-85); Total Cells Counted 100; Total Protein 5.5 G/DL (6.4-8.3)
[2020-03-02 12:38] LABS: Macrocytosis 1+
[2020-03-02 12:39] LABS: Platelet Estimate Decreased
[2020-03-02 12:40] LABS: Anisocytosis 2+; INR 1.2; PT Patient Result 12.9 SECS (9.8-11.9)
[2020-03-02 12:46] LABS: Partial Thromboplastin Time 174.9 SECS (23.9-33.8)
[2020-03-02 15:07] LABS: Apearance,Urine CLEAR (Clear); Bilirubin,Urine Negative (Negative); Blood, Urine Negative (Negative); Glucose,Urine (UA) Negative (Negative); Hyaline Casts,Urine 3 /LPF (0-3); Ketones,Urine Negative (Negative); Mucus,Urine Occasional /LPF (Occasional); Nitrite,Urine Negative (Negative); Protein,Urine Negative; Urine Color Yellow (Yellow); Urine Specific Gravity 1.009 (1.001-1.035); Urine Urobilinogen < 2.0 EU/DL (0.2-1.0)
[2020-03-02] MEDS ORDERED: DEXTROSE 50% 25 GM/50 ML VIAL IV PRN (15:39)
[2020-03-02] MEDS ORDERED: ACETAMINOPHEN 325 MG TABLET PO PRN (15:39)
[2020-03-02] MEDS ORDERED: GLUCAGON 1 MG VIAL IM PRN (15:39)
[2020-03-02] MEDS ORDERED: cefTRIAXone 1,000 MG in SYRINGE 1 EACH IV SCH (17:00)
[2020-03-02] MEDS ORDERED: AZITHROMYCIN INJ 500 MG in SODIUM CHLORIDE 0.9% 250 ML IV SCH (17:00)
[2020-03-02] MEDS: PIPERACILLIN/TAZOBACTAM 3,375 MG in SODIUM CHLORIDE 0.9% 100 ML IV SCH (17:16)
[2020-03-02 18:53] LABS: Glucose,Pleural Fluid 147 MG/DL; LDH,Pleural Fluid 86 U/L
[2020-03-02 19:13] LABS: Lymphocytes,Pleural Fluid 8 %; Neutrophils,Pleural Fluid 92 %; RBC,Pleural Fluid 3005 T/CUMM
[2020-03-02] MEDS: ENOXAPARIN 40 MG/0.4 ML SYRINGE SUBCUT SCH (21:34)
[2020-03-03] MEDS: PIPERACILLIN/TAZOBACTAM 3,375 MG in SODIUM CHLORIDE 0.9% 100 ML IV SCH ×3 (02:48→21:34)
[2020-03-03 09:20] LABS: Hematocrit 24.1 VOL% (35.7-47.0); Mean Corpuscular HGB Conc 31.5 GM/DL (32-36); Mean Corpuscular Volume 95.6 FL (87-102); Mean Platelet Volume 9.8 FL (9.6-12.0); Red Blood Count 2.52 MC/CUMM (3.8-5.5); Red Cell Distribution Width 19.2 % (9.3-17.3); White Blood Count 14.2 T/CUMM (4-12)
[2020-03-03 09:21] LABS: Hemoglobin 7.6 GM/DL (12.0-16.0); Platelet Count 42 T/CUMM (130-400)
[2020-03-03 09:41] LABS: Calcium 7.2 MG/DL (8.5-10.1); Osmolality,Calculated 267.4 MOS/KG (273-304)
[2020-03-03 10:02] LABS: Band Neutrophils 2 % (0-10); Hypochromasia 1+; Lymphocytes 1 % (20-55); Microcytosis Slight; Platelet Estimate Decreased; Segmented Neutrophils 96 % (50-85); Total Cells Counted 100
[2020-03-03] MEDS ORDERED: SODIUM CHLORIDE 0.9% 1,000 ML IV PRN (10:38)
[2020-03-03] MEDS: POTASSIUM CHLORIDE RIDER 10 MEQ in PREMIX 1 EACH IV PRN (10:50)
[2020-03-03] MEDS: POTASSIUM CHLORIDE RIDER 20 MEQ in PREMIX 1 EACH IV PRN ×2 (12:30→14:45)
[2020-03-03] MEDS: FUROSEMIDE 40 MG/4 ML VIAL IV SCH (17:11)
[2020-03-03] MEDS ORDERED: ZALEPLON 5 MG CAPSULE PO PRN (20:18)
[2020-03-03] MEDS: ENOXAPARIN 40 MG/0.4 ML SYRINGE SUBCUT SCH (21:35)
[2020-03-03] MEDS: ZALEPLON 5 MG CAPSULE PO PRN (21:35)
[2020-03-03 23:04] LABS: Hematocrit 31.2 VOL% (35.7-47.0); Hemoglobin 10.2 GM/DL (12.0-16.0)
[2020-03-04] MEDS ORDERED: FUROSEMIDE 40 MG/4 ML VIAL IV ONE (00:24)
[2020-03-04 05:01] LABS: Basophils % 0.3 % (0.0-0.8); Eosinophils # 1.9 10*3/uL (0.0-0.87); Eosinophils % 16.2 % (0.00-10.9); Hematocrit 30.2 VOL% (35.7-47.0); Hemoglobin 9.9 GM/DL (12.0-16.0); Immature Granulocytes % 2.4 %; Immature Granulocytes Absolute 0.28 #; Lymphocytes # 0.4 10*3/uL (1.4-4.0); Mean Corpuscular HGB Conc 32.8 GM/DL (32-36); Mean Corpuscular Volume 94.4 FL (87-102); Mean Platelet Volume 9.1 FL (9.6-12.0); Monocytes % 0.9 % (1.7-12.7); Neutrophils % 77.2 % (38.7-73.9); Red Cell Distribution Width 17.4 % (9.3-17.3); White Blood Count 11.6 T/CUMM (4-12)
[2020-03-04 05:04] LABS: Platelet Count 26 T/CUMM (130-400)
[2020-03-04 05:19] LABS: Calcium 7.1 MG/DL (8.5-10.1); Osmolality,Calculated 264.5 MOS/KG (273-304)
[2020-03-04 05:23] LABS: Band Neutrophils 1 % (0-10); Hypochromasia 1+; Lymphocytes 3 % (20-55); Microcytosis 1+; Platelet Estimate Decreased; Segmented Neutrophils 94 % (50-85); Total Cells Counted 100
[2020-03-04] MEDS: PIPERACILLIN/TAZOBACTAM 3,375 MG in SODIUM CHLORIDE 0.9% 100 ML IV SCH ×3 (05:51→21:36)
[2020-03-04] MEDS: POTASSIUM CHLORIDE RIDER 10 MEQ in PREMIX 1 EACH IV PRN ×3 (06:02→11:10)
[2020-03-04] MEDS: FUROSEMIDE 40 MG/4 ML VIAL IV SCH ×2 (09:03→15:29)
[2020-03-04] MEDS: POTASSIUM CHLORIDE RIDER 20 MEQ in PREMIX 1 EACH IV PRN (09:03)
[2020-03-04] MEDS ORDERED: ONDANSETRON 4 MG/2 ML VIAL IV PRN (12:45)
[2020-03-04] MEDS ORDERED: MAGNESIUM HYDROXIDE SUSP 30 ML UDCUP PO PRN (12:45)
[2020-03-04] MEDS ORDERED: guaiFENesin 200 MG/10 ML UDCUP PO PRN (12:45)
[2020-03-04] MEDS ORDERED: LACTULOSE 20 GM/30 ML UDCUP PO PRN (12:45)
[2020-03-04] MEDS ORDERED: MYLANTA/LIDO VISC 2:1 300 ML BOTTLE SWISH/SPIT PRN (12:45)
[2020-03-04] MEDS ORDERED: ALUMINUM/MAGNES/SIMETH MAX STR 30 ML UDCUP PO PRN (12:45)
[2020-03-04] MEDS ORDERED: ALPRAZolam 0.25 MG TABLET PO PRN (12:45)
[2020-03-04] MEDS ORDERED: MYLANTA/LIDO VISC 2:1 300 ML BOTTLE SWISH/SWAL PRN (12:45)
[2020-03-04] MEDS ORDERED: traMADol 50 MG TABLET PO PRN (12:45)
[2020-03-04] MEDS ORDERED: LOPERAMIDE 2 MG CAPSULE PO PRN ×2 (12:45)
[2020-03-04] MEDS: POTASSIUM CHLORIDE 20 MEQ TABLET PO PRN ×4 (15:29→23:15)
[2020-03-04] MEDS: TEMAZEPAM 7.5 MG CAPSULE PO PRN (21:35)
[2020-03-05] MEDS: PIPERACILLIN/TAZOBACTAM 3,375 MG in SODIUM CHLORIDE 0.9% 100 ML IV SCH ×3 (05:10→22:34)
[2020-03-05 06:57] LABS: Calcium 7.1 MG/DL (8.5-10.1); Osmolality,Calculated 264.4 MOS/KG (273-304)
[2020-03-05 07:01] LABS: Basophils % 0.4 % (0.0-0.8); Eosinophils # 0.1 10*3/uL (0.0-0.87); Eosinophils % 1.1 % (0.00-10.9); Hematocrit 30.3 VOL% (35.7-47.0); Hemoglobin 9.8 GM/DL (12.0-16.0); Immature Granulocytes % 1.1 %; Immature Granulocytes Absolute 0.12 #; Lymphocytes # 0.4 10*3/uL (1.4-4.0); Lymphocytes % 3.5 % (21.3-54.2); Mean Corpuscular HGB Conc 32.3 GM/DL (32-36); Mean Corpuscular Volume 94.4 FL (87-102); Mean Platelet Volume 10.4 FL (9.6-12.0); Monocytes % 1.8 % (1.7-12.7); Neutrophils % 92.1 % (38.7-73.9); Red Blood Count 3.21 MC/CUMM (3.8-5.5); Red Cell Distribution Width 17.8 % (9.3-17.3); White Blood Count 10.4 T/CUMM (4-12)
[2020-03-05 07:10] LABS: Platelet Count 16 T/CUMM (130-400)
[2020-03-05 07:38] LABS: Band Neutrophils 1 % (0-10); Eosinophils 1 % (0-10); Hypochromasia 1+; Lymphocytes 2 % (20-55); Microcytosis Slight; Ovalocytes Slight; Platelet Estimate Decreased; Segmented Neutrophils 94 % (50-85); Total Cells Counted 100
[2020-03-05] MEDS ORDERED: SODIUM CHLORIDE 0.9% 1,000 ML IV PRN (08:40)
[2020-03-05] MEDS: POTASSIUM CHLORIDE 20 MEQ TABLET PO PRN ×3 (08:43→14:41)
[2020-03-05] MEDS: FUROSEMIDE 40 MG/4 ML VIAL IV SCH ×2 (08:43→18:00)
[2020-03-05] MEDS: ONDANSETRON 4 MG/2 ML VIAL IV PRN (22:32)
[2020-03-06] MEDS: PIPERACILLIN/TAZOBACTAM 3,375 MG in SODIUM CHLORIDE 0.9% 100 ML IV SCH ×3 (05:11→21:08)
[2020-03-06 06:16] LABS: Basophils % 0.2 % (0.0-0.8); Eosinophils % 0.3 % (0.00-10.9); Hemoglobin 10.2 GM/DL (12.0-16.0); Immature Granulocytes % 1.5 %; Immature Granulocytes Absolute 0.13 #; Lymphocytes # 0.6 10*3/uL (1.4-4.0); Lymphocytes % 7.1 % (21.3-54.2); Mean Corpuscular HGB Conc 31.9 GM/DL (32-36); Mean Corpuscular Volume 94.7 FL (87-102); Mean Platelet Volume 10.4 FL (9.6-12.0); Monocytes % 2.2 % (1.7-12.7); Neutrophils % 88.7 % (38.7-73.9); Red Blood Count 3.38 MC/CUMM (3.8-5.5); Red Cell Distribution Width 17.6 % (9.3-17.3); White Blood Count 8.7 T/CUMM (4-12)
[2020-03-06 06:18] LABS: Platelet Count 61 T/CUMM (130-400)
[2020-03-06 06:35] LABS: Band Neutrophils 1 % (0-10); Hypochromasia 1+; Lymphocytes 10 % (20-55); Platelet Estimate Decreased; Segmented Neutrophils 86 % (50-85); Total Cells Counted 100
[2020-03-06 06:36] LABS: Microcytosis Slight
[2020-03-06 06:48] LABS: Calcium 7.4 MG/DL (8.5-10.1); Osmolality,Calculated 266.4 MOS/KG (273-304)
[2020-03-06] MEDS: FUROSEMIDE 40 MG/4 ML VIAL IV SCH ×2 (09:02→16:54)
[2020-03-06] MEDS: POTASSIUM CHLORIDE RIDER 10 MEQ in PREMIX 1 EACH IV PRN (09:06)
[2020-03-06] MEDS: POTASSIUM CHLORIDE RIDER 20 MEQ in PREMIX 1 EACH IV PRN (10:09)
[2020-03-07] MEDS: PIPERACILLIN/TAZOBACTAM 3,375 MG in SODIUM CHLORIDE 0.9% 100 ML IV SCH ×3 (05:12→20:57)
[2020-03-07 06:24] LABS: Basophils % 0.1 % (0.0-0.8); Eosinophils % 0.4 % (0.00-10.9); Hematocrit 30.9 VOL% (35.7-47.0); Hemoglobin 9.8 GM/DL (12.0-16.0); Immature Granulocytes % 0.9 %; Immature Granulocytes Absolute 0.06 #; Lymphocytes # 0.5 10*3/uL (1.4-4.0); Lymphocytes % 7.6 % (21.3-54.2); Mean Corpuscular HGB Conc 31.7 GM/DL (32-36); Mean Corpuscular Volume 96.6 FL (87-102); Mean Platelet Volume 10.9 FL (9.6-12.0); Monocytes % 2.6 % (1.7-12.7); Neutrophils % 88.4 % (38.7-73.9); Red Cell Distribution Width 17.7 % (9.3-17.3); White Blood Count 6.8 T/CUMM (4-12)
[2020-03-07 06:28] LABS: Platelet Count 44 T/CUMM (130-400)
[2020-03-07 06:47] LABS: Eosinophils 1 % (0-10); Hypochromasia 1+; Lymphocytes 6 % (20-55); Platelet Estimate Decreased; Segmented Neutrophils 93 % (50-85); Total Cells Counted 100
[2020-03-07 06:48] LABS: Calcium 6.8 MG/DL (8.5-10.1); Microcytosis Slight; Osmolality,Calculated 268.1 MOS/KG (273-304)
[2020-03-07] MEDS ORDERED: MAGNESIUM SULF RIDER 2 GM in PREMIX 1 EACH IV PRN (07:34)
[2020-03-07] MEDS ORDERED: MAGNESIUM SULF RIDER 4 GM in PREMIX 1 EACH IV PRN (07:34)
[2020-03-07] MEDS ORDERED: LIDOCAINE 1%/EPI INJ 20 ML VIAL ONE (07:37)
[2020-03-07] MEDS ORDERED: LACTATED RINGERS 1,000 ML IV SCH (08:30)
[2020-03-07] MEDS: POTASSIUM CHLORIDE 20 MEQ TABLET PO SCH ×2 (09:33→20:55)
[2020-03-07] MEDS: FUROSEMIDE 40 MG/4 ML VIAL IV SCH ×2 (09:33→15:39)
[2020-03-07] MEDS: POTASSIUM CHLORIDE 20 MEQ TABLET PO PRN ×3 (12:37→18:10)
[2020-03-07] MEDS ORDERED: SODIUM CHLORIDE 0.9% 1,000 ML IV PRN ×2 (17:00→17:09)
[2020-03-08] MEDS: PIPERACILLIN/TAZOBACTAM 3,375 MG in SODIUM CHLORIDE 0.9% 100 ML IV SCH ×3 (04:06→21:40)
[2020-03-08 06:57] LABS: Basophils % 0.2 % (0.0-0.8); Eosinophils # 0.1 10*3/uL (0.0-0.87); Eosinophils % 0.9 % (0.00-10.9); Hematocrit 30.8 VOL% (35.7-47.0); Hemoglobin 9.4 GM/DL (12.0-16.0); Immature Granulocytes % 0.7 %; Immature Granulocytes Absolute 0.04 #; Lymphocytes # 0.5 10*3/uL (1.4-4.0); Lymphocytes % 9.7 % (21.3-54.2); Mean Corpuscular HGB Conc 30.5 GM/DL (32-36); Mean Corpuscular Volume 98.7 FL (87-102); Mean Platelet Volume 9.7 FL (9.6-12.0); Monocytes % 2.9 % (1.7-12.7); NRBC # 0.02 10*3/uL; Neutrophils % 85.6 % (38.7-73.9); Red Blood Count 3.12 MC/CUMM (3.8-5.5); Red Cell Distribution Width 17.7 % (9.3-17.3); White Blood Count 5.6 T/CUMM (4-12)
[2020-03-08 07:06] LABS: Platelet Count 46 T/CUMM (130-400)
[2020-03-08 07:22] LABS: Calcium 6.8 MG/DL (8.5-10.1); Osmolality,Calculated 271.8 MOS/KG (273-304)
[2020-03-08 07:36] LABS: Anisocytosis 1+; Band Neutrophils 19 % (0-10); Eosinophils 2 % (0-10); Lymphocytes 6 % (20-55); Platelet Estimate Decreased; Segmented Neutrophils 71 % (50-85); Total Cells Counted 100
[2020-03-08] MEDS ORDERED: LACTATED RINGERS 1,000 ML IV SCH ×2 (09:00→10:00)
[2020-03-08] MEDS ORDERED: LIDOCAINE 1%/EPI INJ 20 ML VIAL ONE (09:16)
[2020-03-08] MEDS ORDERED: BUPIVACAINE MPF 0.25% 30 ML VIAL ONE (09:16)
[2020-03-08] MEDS ORDERED: LIDOCAINE 1% 20 ML VIAL ONE ×2 (09:16→09:20)
[2020-03-08] MEDS ORDERED: MIDAZOLAM 2 MG/2 ML VIAL ONE (09:49)
[2020-03-08] MEDS ORDERED: propofoL 200 MG/20 ML VIAL IV ONE (09:49)
[2020-03-08] MEDS ORDERED: ONDANSETRON 4 MG/2 ML VIAL IV PRN (09:50)
[2020-03-08] MEDS ORDERED: HYDROmorphone 2 MG/1 ML VIAL IV PRN ×2 (09:50→15:01)
[2020-03-08] MEDS: POTASSIUM CHLORIDE RIDER 10 MEQ in PREMIX 1 EACH IV PRN ×2 (10:42→11:51)
[2020-03-08] MEDS: POTASSIUM CHLORIDE 20 MEQ TABLET PO SCH ×2 (11:08→21:41)
[2020-03-08] MEDS: FUROSEMIDE 40 MG/4 ML VIAL IV SCH ×2 (11:08→15:12)
[2020-03-08] MEDS: POTASSIUM CHLORIDE RIDER 20 MEQ in PREMIX 1 EACH IV PRN (11:51)
[2020-03-08] MEDS ORDERED: DOXYCYCLINE HYCLATE INJ 200 MG, LIDOCAINE 1% INJ 20 ML in STERILE WATER INJ 30 ML INTRAPLEUR ONE (13:00)
[2020-03-08] MEDS: PROMETHAZINE INJ 25 MG in SODIUM CHLORIDE 0.9% 50 ML IV PRN (19:38)
[2020-03-09] MEDS: PIPERACILLIN/TAZOBACTAM 3,375 MG in SODIUM CHLORIDE 0.9% 100 ML IV SCH ×3 (04:43→20:50)
[2020-03-09] MEDS ORDERED: DOXYCYCLINE HYCLATE INJ 200 MG, LIDOCAINE 1% INJ 20 ML in STERILE WATER INJ 30 ML INTRAPLEUR ONE (08:00)
[2020-03-09 08:02] LABS: Basophils % 0.2 % (0.0-0.8); Eosinophils # 0.1 10*3/uL (0.0-0.87); Eosinophils % 0.8 % (0.00-10.9); Hematocrit 32.2 VOL% (35.7-47.0); Hemoglobin 10.1 GM/DL (12.0-16.0); Immature Granulocytes % 1.3 %; Immature Granulocytes Absolute 0.08 #; Lymphocytes # 0.5 10*3/uL (1.4-4.0); Lymphocytes % 8.8 % (21.3-54.2); Mean Corpuscular HGB Conc 31.4 GM/DL (32-36); Mean Platelet Volume 9.5 FL (9.6-12.0); Monocytes % 4.7 % (1.7-12.7); NRBC # 0.02 10*3/uL; Neutrophils % 84.2 % (38.7-73.9); Red Blood Count 3.32 MC/CUMM (3.8-5.5); Red Cell Distribution Width 17.7 % (9.3-17.3); White Blood Count 6.2 T/CUMM (4-12)
[2020-03-09 08:05] LABS: Platelet Count 89 T/CUMM (130-400)
[2020-03-09] MEDS: POTASSIUM CHLORIDE 20 MEQ TABLET PO SCH ×2 (08:40→20:50)
[2020-03-09] MEDS: FUROSEMIDE 40 MG/4 ML VIAL IV SCH (08:42)
[2020-03-09 08:50] LABS: Albumin 1.7 G/DL (3.4-5.0); Bilirubin,Total 0.6 MG/DL (0.2-1.0); Calcium 6.4 MG/DL (8.5-10.1); Total Protein 4.2 G/DL (6.4-8.3)
[2020-03-09] MEDS: POTASSIUM CHLORIDE 20 MEQ TABLET PO PRN ×2 (11:05→13:22)
[2020-03-09] MEDS ORDERED: MAGNESIUM SULF RIDER 2 GM in PREMIX 1 EACH IV ONE (11:54)
[2020-03-09] MEDS ORDERED: HYDROmorphone 2 MG/1 ML VIAL IV PRN (15:00)
[2020-03-09] MEDS: FUROSEMIDE 40 MG TABLET PO SCH (16:22)
[2020-03-09] MEDS: MAGNESIUM OXIDE 400 MG TABLET PO SCH (20:48)
[2020-03-09] MEDS: ZALEPLON 5 MG CAPSULE PO PRN (20:49)
[2020-03-10 06:05] LABS: Basophils % 0.2 % (0.0-0.8); Eosinophils % 0.5 % (0.00-10.9); Hematocrit 34.4 VOL% (35.7-47.0); Hemoglobin 10.7 GM/DL (12.0-16.0); Immature Granulocytes % 0.5 %; Immature Granulocytes Absolute 0.03 #; Lymphocytes # 0.9 10*3/uL (1.4-4.0); Lymphocytes % 15.3 % (21.3-54.2); Mean Corpuscular HGB Conc 31.1 GM/DL (32-36); Mean Platelet Volume 9.7 FL (9.6-12.0); Monocytes % 5.6 % (1.7-12.7); Neutrophils % 77.9 % (38.7-73.9); Platelet Count 101 T/CUMM (130-400); Red Blood Count 3.51 MC/CUMM (3.8-5.5); White Blood Count 5.9 T/CUMM (4-12)
[2020-03-10 06:08] LABS: Calcium 7.1 MG/DL (8.5-10.1); Osmolality,Calculated 265.2 MOS/KG (273-304)
[2020-03-10 07:24] LABS: Platelet Estimate Adequate
[2020-03-10 07:28] LABS: Anisocytosis 1+; Macrocytosis 1+
[2020-03-10] MEDS: FUROSEMIDE 40 MG TABLET PO SCH ×2 (09:56→17:29)
[2020-03-10] MEDS: POTASSIUM CHLORIDE 20 MEQ TABLET PO SCH ×2 (09:56→20:34)
[2020-03-10] MEDS: MAGNESIUM OXIDE 400 MG TABLET PO SCH ×2 (09:56→20:37)
[2020-03-10] MEDS: ONDANSETRON 4 MG/2 ML VIAL IV PRN (09:57)
[2020-03-10] MEDS: TEMAZEPAM 7.5 MG CAPSULE PO PRN (23:10)
[2020-03-11 07:10] LABS: Basophils % 0.3 % (0.0-0.8); Eosinophils # 0.1 10*3/uL (0.0-0.87); Eosinophils % 3.1 % (0.00-10.9); Hematocrit 32.5 VOL% (35.7-47.0); Hemoglobin 10.2 GM/DL (12.0-16.0); Immature Granulocytes % 0.3 %; Immature Granulocytes Absolute 0.01 #; Lymphocytes # 0.7 10*3/uL (1.4-4.0); Lymphocytes % 23.5 % (21.3-54.2); Mean Corpuscular HGB Conc 31.4 GM/DL (32-36); Mean Corpuscular Volume 98.2 FL (87-102); Mean Platelet Volume 9.8 FL (9.6-12.0); Monocytes % 9.7 % (1.7-12.7); Neutrophils % 63.1 % (38.7-73.9); Platelet Count 99 T/CUMM (130-400); Red Blood Count 3.31 MC/CUMM (3.8-5.5); Red Cell Distribution Width 18.3 % (9.3-17.3); White Blood Count 2.9 T/CUMM (4-12)
[2020-03-11 08:06] LABS: Platelet Estimate Decreased
[2020-03-11 08:07] LABS: Anisocytosis 1+
[2020-03-11] MEDS: FUROSEMIDE 40 MG TABLET PO SCH ×2 (09:53→18:34)
[2020-03-11] MEDS: POTASSIUM CHLORIDE 20 MEQ TABLET PO SCH ×2 (09:54→21:57)
[2020-03-11] MEDS: MAGNESIUM OXIDE 400 MG TABLET PO SCH ×2 (09:54→21:57)
[2020-03-11] MEDS: POTASSIUM CHLORIDE RIDER 10 MEQ in PREMIX 1 EACH IV PRN ×2 (09:56→11:04)
[2020-03-11] MEDS: TEMAZEPAM 7.5 MG CAPSULE PO PRN (21:57)
[2020-03-12 05:59] LABS: Basophils % 0.3 % (0.0-0.8); Eosinophils # 0.1 10*3/uL (0.0-0.87); Hematocrit 33.4 VOL% (35.7-47.0); Hemoglobin 10.2 GM/DL (12.0-16.0); Immature Granulocytes % 0.6 %; Immature Granulocytes Absolute 0.02 #; Lymphocytes # 0.8 10*3/uL (1.4-4.0); Lymphocytes % 23.3 % (21.3-54.2); Mean Corpuscular HGB Conc 30.5 GM/DL (32-36); Mean Corpuscular Volume 100.3 FL (87-102); Mean Platelet Volume 9.5 FL (9.6-12.0); Monocytes % 9.7 % (1.7-12.7); Neutrophils % 63.1 % (38.7-73.9); Platelet Count 123 T/CUMM (130-400); Red Blood Count 3.33 MC/CUMM (3.8-5.5); Red Cell Distribution Width 19.1 % (9.3-17.3); White Blood Count 3.3 T/CUMM (4-12)
[2020-03-12 06:30] LABS: Calcium 7.5 MG/DL (8.5-10.1)
[2020-03-12] MEDS: FUROSEMIDE 40 MG TABLET PO SCH ×2 (08:34→17:39)
[2020-03-12] MEDS: MAGNESIUM OXIDE 400 MG TABLET PO SCH ×2 (08:34→20:22)
[2020-03-12] MEDS: POTASSIUM CHLORIDE 20 MEQ TABLET PO SCH ×2 (08:35→20:22)
[2020-03-12] MEDS: TEMAZEPAM 7.5 MG CAPSULE PO PRN (22:40)
[2020-03-13 05:05] LABS: Basophils % 0.6 % (0.0-0.8); Eosinophils # 0.1 10*3/uL (0.0-0.87); Eosinophils % 3.2 % (0.00-10.9); Hematocrit 33.5 VOL% (35.7-47.0); Hemoglobin 10.4 GM/DL (12.0-16.0); Immature Granulocytes % 0.6 %; Immature Granulocytes Absolute 0.02 #; Lymphocytes # 0.9 10*3/uL (1.4-4.0); Lymphocytes % 25.4 % (21.3-54.2); Mean Corpuscular Volume 100.9 FL (87-102); Mean Platelet Volume 8.9 FL (9.6-12.0); Neutrophils % 59.2 % (38.7-73.9); Platelet Count 135 T/CUMM (130-400); Red Blood Count 3.32 MC/CUMM (3.8-5.5); Red Cell Distribution Width 19.6 % (9.3-17.3); White Blood Count 3.5 T/CUMM (4-12)
[2020-03-13 05:27] LABS: Calcium 7.5 MG/DL (8.5-10.1)
[2020-03-13] MEDS ORDERED: DOXYCYCLINE HYCLATE INJ 200 MG, LIDOCAINE 1% INJ 20 ML in STERILE WATER INJ 30 ML INTRAPLEUR ONE (08:00)
[2020-03-13] MEDS: MAGNESIUM OXIDE 400 MG TABLET PO SCH ×2 (09:32→20:17)
[2020-03-13] MEDS: POTASSIUM CHLORIDE 20 MEQ TABLET PO SCH ×2 (09:33→20:18)
[2020-03-13] MEDS: FUROSEMIDE 40 MG TABLET PO SCH ×2 (09:33→17:50)
[2020-03-13] MEDS: PROMETHAZINE INJ 25 MG in SODIUM CHLORIDE 0.9% 50 ML IV PRN (10:51)
[2020-03-13] MEDS: TEMAZEPAM 7.5 MG CAPSULE PO PRN (22:12)
[2020-03-14] MEDS: POTASSIUM CHLORIDE 20 MEQ TABLET PO SCH ×2 (08:48→20:40)
[2020-03-14] MEDS: MAGNESIUM OXIDE 400 MG TABLET PO SCH ×2 (08:48→20:40)
[2020-03-14] MEDS: FUROSEMIDE 40 MG TABLET PO SCH ×2 (08:48→17:23)
[2020-03-14] MEDS: TEMAZEPAM 7.5 MG CAPSULE PO PRN (22:32)
[2020-03-15 05:04] LABS: Basophils % 0.6 % (0.0-0.8); Eosinophils # 0.1 10*3/uL (0.0-0.87); Eosinophils % 2.7 % (0.00-10.9); Hematocrit 31.8 VOL% (35.7-47.0); Hemoglobin 9.9 GM/DL (12.0-16.0); Immature Granulocytes % 0.8 %; Immature Granulocytes Absolute 0.04 #; Lymphocytes # 1.1 10*3/uL (1.4-4.0); Lymphocytes % 22.1 % (21.3-54.2); Mean Corpuscular HGB Conc 31.1 GM/DL (32-36); Mean Corpuscular Volume 99.4 FL (87-102); Mean Platelet Volume 9.8 FL (9.6-12.0); Monocytes % 11.9 % (1.7-12.7); Neutrophils % 61.9 % (38.7-73.9); Platelet Count 189 T/CUMM (130-400); Red Cell Distribution Width 20.8 % (9.3-17.3); White Blood Count 4.9 T/CUMM (4-12)
[2020-03-15 05:23] LABS: Alanine Aminotransferase 26 U/L (13-56); Albumin 1.5 G/DL (3.4-5.0); Alkaline Phosphatase 222 U/L (45-117); Aspartate Amino Transferase 32 U/L (0-37); Bilirubin,Total < 0.39 MG/DL (0.2-1.0); Blood Urea Nitrogen 15 MG/DL (7-18); Calcium 8.5 MG/DL (8.5-10.1); Estimated Glom Filtration Rate 109 ML/MIN; Glucose 109 MG/DL (74-106); Osmolality,Calculated 271.1 MOS/KG (273-304); Total Protein 4.5 G/DL (6.4-8.3)
[2020-03-15] MEDS: FUROSEMIDE 40 MG TABLET PO SCH ×2 (08:58→15:05)
[2020-03-15] MEDS: POTASSIUM CHLORIDE 20 MEQ TABLET PO SCH ×2 (08:58→20:34)
[2020-03-15] MEDS: MAGNESIUM OXIDE 400 MG TABLET PO SCH ×2 (08:58→20:34)
[2020-03-15] MEDS: ASPIRIN EC 81 MG TABLET PO SCH (15:05)
[2020-03-15] MEDS: TEMAZEPAM 7.5 MG CAPSULE PO PRN (22:16)
[2020-03-16] MEDS: FUROSEMIDE 40 MG TABLET PO SCH ×2 (08:45→17:11)
[2020-03-16] MEDS: ASPIRIN EC 81 MG TABLET PO SCH (08:45)
[2020-03-16] MEDS: POTASSIUM CHLORIDE 20 MEQ TABLET PO SCH ×2 (08:45→20:30)
[2020-03-16] MEDS: MAGNESIUM OXIDE 400 MG TABLET PO SCH ×2 (08:45→20:29)
[2020-03-16] MEDS: TEMAZEPAM 7.5 MG CAPSULE PO PRN (20:30)
[2020-03-16] MEDS: diphenhydrAMINE CAP 25 MG CAPSULE PO PRN (20:34)
[2020-03-17] MEDS: POTASSIUM CHLORIDE 20 MEQ TABLET PO SCH ×2 (08:33→20:52)
[2020-03-17] MEDS: ASPIRIN EC 81 MG TABLET PO SCH (08:33)
[2020-03-17] MEDS: MAGNESIUM OXIDE 400 MG TABLET PO SCH ×2 (08:33→20:51)
[2020-03-17] MEDS: FUROSEMIDE 40 MG TABLET PO SCH ×2 (08:34→15:37)
[2020-03-17] MEDS: TEMAZEPAM 7.5 MG CAPSULE PO PRN (20:51)
[2020-03-17] MEDS: diphenhydrAMINE CAP 25 MG CAPSULE PO PRN (20:52)
[2020-03-18 05:30] LABS: Basophils % 0.8 % (0.0-0.8); Eosinophils # 0.1 10*3/uL (0.0-0.87); Eosinophils % 3.1 % (0.00-10.9); Hematocrit 33.5 VOL% (35.7-47.0); Hemoglobin 10.4 GM/DL (12.0-16.0); Immature Granulocytes % 0.5 %; Immature Granulocytes Absolute 0.02 #; Lymphocytes # 0.8 10*3/uL (1.4-4.0); Lymphocytes % 21.9 % (21.3-54.2); Mean Corpuscular Volume 99.1 FL (87-102); Mean Platelet Volume 8.7 FL (9.6-12.0); Monocytes % 14.1 % (1.7-12.7); Neutrophils % 59.6 % (38.7-73.9); Platelet Count 244 T/CUMM (130-400); Red Blood Count 3.38 MC/CUMM (3.8-5.5); Red Cell Distribution Width 21.8 % (9.3-17.3); White Blood Count 3.8 T/CUMM (4-12)
[2020-03-18 05:37] LABS: Osmolality,Calculated 275.7 MOS/KG (273-304)
[2020-03-18] MEDS: FUROSEMIDE 40 MG TABLET PO SCH ×2 (09:13→15:36)
[2020-03-18] MEDS: ASPIRIN EC 81 MG TABLET PO SCH (09:13)
[2020-03-18] MEDS: POTASSIUM CHLORIDE 20 MEQ TABLET PO SCH ×2 (09:13→21:11)
[2020-03-18] MEDS: MAGNESIUM OXIDE 400 MG TABLET PO SCH ×2 (09:13→21:10)
[2020-03-18] MEDS: TEMAZEPAM 7.5 MG CAPSULE PO PRN (21:10)
[2020-03-19] MEDS: ASPIRIN EC 81 MG TABLET PO SCH (09:36)
[2020-03-19] MEDS: MAGNESIUM OXIDE 400 MG TABLET PO SCH (09:36)
[2020-03-19] MEDS: FUROSEMIDE 40 MG TABLET PO SCH (09:37)
[2020-03-19] MEDS: POTASSIUM CHLORIDE 20 MEQ TABLET PO SCH (09:37)
[2020-03-19 11:49] VITALS: BP 125/65
== END 2020-03-19 13:31 | disposition swing bed (61) | DRG 598 ==
LOC: N.ED 11:01 → N.EDINP 11:01 → SUATTDRO 15:39 → N.TELES 16:25 → SUATTDRO 03-03 13:59
PROVIDERS: ADMIT Internal Medicine; ATTEND Emergency Medicine

== ENCOUNTER 2020-08-09 01:56 | Observation (INO) ==
[2020-08-09] MEDS ORDERED: PANTOPRAZOLE 40 MG VIAL IV STA (02:47)
[2020-08-09] MEDS ORDERED: ONDANSETRON 4 MG/2 ML VIAL IV STA (02:47)
[2020-08-09] MEDS ORDERED: HYDROmorphone 2 MG/1 ML VIAL IV STA (02:47)
[2020-08-09 03:45] LABS: Basophils % 0.5 % (0.0-0.8); Eosinophils % 0.4 % (0.00-10.9); Hematocrit 40.8 VOL% (35.7-47.0); Hemoglobin 13.6 GM/DL (12.0-16.0); Immature Granulocytes % 0.3 %; Immature Granulocytes Absolute 0.02 #; Lymphocytes % 13.1 % (21.3-54.2); Mean Corpuscular HGB Conc 33.3 GM/DL (32-36); Mean Corpuscular Volume 110.9 FL (87-102); Mean Platelet Volume 9.6 FL (9.6-12.0); Monocytes % 8.8 % (1.7-12.7); Neutrophils % 76.9 % (38.7-73.9); Platelet Count 176 T/CUMM (130-400); Red Blood Count 3.68 MC/CUMM (3.8-5.5); Red Cell Distribution Width 16.8 % (9.3-17.3)
[2020-08-09 04:10] LABS: Albumin 1.9 G/DL (3.4-5.0); Calcium 8.8 MG/DL (8.5-10.1); Osmolality,Calculated 265.5 MOS/KG (273-304); Total Protein 5.4 G/DL (6.4-8.3)
[2020-08-09 04:12] LABS: Platelet Estimate Adequate
[2020-08-09 04:20] LABS: Bilirubin,Total 12.3 MG/DL (0.2-1.0)
[2020-08-09 04:34] LABS: Urine Appearance CLEAR (Clear); Urine Color Amber (Yellow)
[2020-08-09 04:35] LABS: Bacteria,Urine Occasional /HPF (Few); Bilirubin,Urine Moderate mg/dL (Negative); Blood, Urine Negative (Negative); Glucose,Urine (UA) Negative (Negative); Hyaline Casts,Urine 115 /LPF (0-3); Ketones,Urine Negative (Negative); Mucus,Urine Occasional /LPF (Occasional); Nitrite,Urine Negative (Negative); Protein,Urine Negative; RBC,Urine 1 /HPF (0-4); Squamous Epithelial Cell,Urine Occasional /HPF (0-10); Urine Specific Gravity 1.014 (1.001-1.035); WBC,Urine 3 /HPF (0-6)
[2020-08-09] MEDS ORDERED: GLUCAGON 1 MG VIAL IM PRN (04:49)
[2020-08-09] MEDS ORDERED: DEXTROSE 50% 25 GM/50 ML VIAL IV PRN (04:49)
[2020-08-09] MEDS ORDERED: DEXTROSE 50% 25 GM/50 ML SYRINGE IV PRN (04:56)
[2020-08-09] MEDS ORDERED: traMADol 50 MG TABLET PO PRN (08:47)
[2020-08-09] MEDS ORDERED: PROCHLORPERAZINE 10 MG TABLET PO PRN (08:48)
[2020-08-09] MEDS ORDERED: POTASSIUM CHLORIDE 20 MEQ PACK PO SCH (09:00)
[2020-08-09] MEDS: PANTOPRAZOLE 40 MG TABLET PO SCH (10:35)
[2020-08-09] MEDS: carvediloL 3.125 MG TABLET PO SCH ×2 (10:35→20:48)
[2020-08-09] MEDS ORDERED: POTASSIUM CHLORIDE 20 MEQ TABLET PO ONE (10:42)
[2020-08-09] MEDS: HYDROmorphone 2 MG/1 ML VIAL IV PRN ×2 (14:18→20:54)
[2020-08-09] MEDS ORDERED: ALBUMIN 25% 25 GM in PREMIX 1 EACH IV ONE (15:00)
[2020-08-09] MEDS: ONDANSETRON 4 MG/2 ML VIAL IV PRN (20:51)
[2020-08-09] MEDS ORDERED: GABAPENTIN 300 MG CAPSULE PO SCH (21:00)
[2020-08-09] MEDS ORDERED: MAGNESIUM OXIDE 400 MG TABLET PO SCH (21:00)
[2020-08-10] MEDS: HYDROmorphone 2 MG/1 ML VIAL IV PRN ×2 (03:47→09:44)
[2020-08-10] MEDS: ONDANSETRON 4 MG/2 ML VIAL IV PRN ×2 (03:52→08:31)
[2020-08-10 06:03] LABS: Basophils % 0.3 % (0.0-0.8); Eosinophils # 0.1 10*3/uL (0.0-0.87); Eosinophils % 0.9 % (0.00-10.9); Hematocrit 35.7 VOL% (35.7-47.0); Hemoglobin 11.7 GM/DL (12.0-16.0); Immature Granulocytes % 0.6 %; Immature Granulocytes Absolute 0.04 #; Lymphocytes # 0.9 10*3/uL (1.4-4.0); Lymphocytes % 13.8 % (21.3-54.2); Mean Corpuscular HGB Conc 32.8 GM/DL (32-36); Mean Corpuscular Volume 114.8 FL (87-102); Mean Platelet Volume 9.8 FL (9.6-12.0); Monocytes % 10.9 % (1.7-12.7); Neutrophils % 73.5 % (38.7-73.9); Platelet Count 144 T/CUMM (130-400); Red Blood Count 3.11 MC/CUMM (3.8-5.5); Red Cell Distribution Width 16.6 % (9.3-17.3); White Blood Count 6.6 T/CUMM (4-12)
[2020-08-10 06:25] LABS: Platelet Estimate Normal
[2020-08-10 06:30] LABS: Albumin 2.2 G/DL (3.4-5.0); Bilirubin,Total 11.4 MG/DL (0.2-1.0); Calcium 8.6 MG/DL (8.5-10.1); Osmolality,Calculated 266.4 MOS/KG (273-304)
[2020-08-10] MEDS ORDERED: POTASSIUM CHLORIDE 20 MEQ TABLET PO SCH (09:00)
[2020-08-10] MEDS: carvediloL 3.125 MG TABLET PO SCH (09:43)
[2020-08-10] MEDS: PANTOPRAZOLE 40 MG TABLET PO SCH (09:43)
[2020-08-10] MEDS ORDERED: HYDROmorphone 2 MG TABLET PO PRN (14:29)
[2020-08-10 15:45] VITALS: BP 112/72
== END 2020-08-10 16:27 | disposition hospice, home (50) ==
LOC: N.ED 01:56 → N.EDINP 01:56 → N.4E 05:10
PROVIDERS: ADMIT Internal Medicine; ATTEND Internal Medicine